=== PATIENT | male | born 1980 | race Caucasian/White ===

== ENCOUNTER 2017-10-29 08:32 | Emergency (ER) | payer BC ==
[2017-10-29] MEDS ORDERED: Ketorolac 30 MG/ML SDV IVPUSH ONE (08:48)
--- NOTE | 2017-10-29 09:24 | EDM.PDOC ---
ED HPI GENERAL MEDICAL PROBLEM - General Chief Complaint: Genitourinary Problem Stated Complaint: LEFT FLANK/KIDNEY PAIN Time Seen by Provider: 10/29/17 09:10 Source of Information: Reports: Patient History Limitations: Reports: No Limitations - History of Present Illness INITIAL COMMENTS - FREE TEXT/NARRATIVE: 37-year-old male with a history of uric acid stones, developed what appeared to be hematuria over the past 24 hours, and this morning at 7:30 had a very sudden onset of left flank pain. Nausea and vomiting, but no dysuria, fevers or chills. Onset: Sudden Location: Reports: Back (Left flank) Quality: Reports: Sharp, Stabbing Severity: Severe Associated Symptoms: Reports: Nausea/Vomiting Left Flank Pain Score (Numeric/FACES): 2 - Related Data Allergies Allergy/AdvReac Type Severity Reaction Status Date / Time Penicillins Allergy Cannot Verified 10/29/17 08:48 Remember Sulfa (Sulfonamide Allergy Cannot Verified 10/29/17 08:48 Antibiotics) Remember Home Meds: Home Meds NK [No Known Home Meds] 10/29/17 [History] Past Medical History HEENT History: Reports: Impaired Vision Cardiovascular History: Reports: High Cholesterol Respiratory History: Reports: Asthma Gastrointestinal History: Reports: GERD Genitourinary History: Reports: Renal Calculus Musculoskeletal History: Reports: Gout Endocrine/Metabolic History: Reports: Obesity/BMI 30+ - Infectious Disease History Infectious Disease History: Reports: Chicken Pox - Past Surgical History HEENT Surgical History: Reports: Adenoidectomy Social & Family History - Tobacco Use Smoking Status *Q: Never Smoker Second Hand Smoke Exposure: No - Caffeine Use Caffeine Use: Reports: Soda - Alcohol Use Days Per Week of Alcohol Use: 2 Number of Drinks Per Day: 2 Total Drinks Per Week: 4 - Recreational Drug Use Recreational Drug Use: No ED ROS GENERAL - Review of Systems Review Of Systems: See Below Constitutional: Denies: Fever, Chills HEENT: Reports: No Symptoms Respiratory: Denies: Shortness of Breath Cardiovascular: Denies: Chest Pain GI/Abdominal: Reports: Nausea, Vomiting. Denies: Abdominal Pain : Reports: Flank Pain, Hematuria Musculoskeletal: Reports: Back Pain Skin: Reports: No Symptoms (Left side) Neurological: Reports: No Symptoms Psychiatric: Reports: No Symptoms ED EXAM, RENAL/ - Physical Exam Exam: See Below Exam Limited By: No Limitations General Appearance: Alert, Anxious, Moderate Distress Head: Atraumatic Respiratory/Chest: No Respiratory Distress Cardiovascular: Regular Rate, Rhythm GI/Abdominal: Soft, Non-Tender Extremities: No: Pedal Edema Neurological: Alert, Oriented Psychiatric: Anxious Skin Exam: Warm, Dry Course - Vital Signs Last Recorded V/S: Last Vital Signs Temp 94.9 F L 10/29/17 09:07 Pulse 61 10/29/17 09:07 Resp 15 10/29/17 09:07 BP 184/109 H 10/29/17 09:07 Pulse Ox 100 10/29/17 09:07 - Orders/Labs/Meds Orders: Active Orders 24 hr Category Date Time Status UA W/MICROSCOPIC [URIN] Urgent Lab 10/29/17 09:26 Ordered Labs: Laboratory Tests 10/29/17 Range/Units 09:26 Urine Color Red Urine Appearance Cloudy Urine pH 5.0 (4.5-8.0) Ur Specific [place] 1.015 (1.008-1.030) Urine Protein 30 H (NEGATIVE) mg/dL Urine Glucose (UA) Normal (NEGATIVE) mg/dL Urine Ketones Negative (NEGATIVE) mg/dL Urine Occult Blood Large (NEGATIVE) Urine Nitrite Negative (NEGAITVE) Urine Bilirubin Negative (NEGATIVE) Urine Urobilinogen Normal (NORMAL) mg/dL Ur Leukocyte Esterase Small (NEGATIVE) Urine RBC Packed H (0-5) Urine WBC 5-10 H (0-5) Ur Epithelial Cells Rare Amorphous Sediment Rare Urine Bacteria Moderate Urine Mucus Rare Meds: Medications Discontinued Medications Generic Name Dose Route Start Last Admin Trade Name Freq PRN Reason Stop Dose Admin Ketorolac Tromethamine 30 mg 10/29/17 08:48 10/29/17 09:00 Toradol IVPUSH 10/29/17 08:49 30 mg ONETIME ONE Administration Tamsulosin HCl 0.4 mg 10/29/17 10:01 10/29/17 10:06 Flomax PO 10/29/17 10:02 0.4 mg ONETIME ONE Administration - Re-Assessments/Exams Free Text/Narrative Re-Assessment/Exam: 10/29/17 09:23 An IV was started and the patient was given 30 mg of IV Toradol. Within 20 minutes she was much improved but still had pain at a 2. Urine had an obvious red tinge, a UA was ordered and after discussion we decided to obtain a CT scan of the abdomen and pelvis which was ordered. 10/29/17 10:23 UA confirmed RBCs, CT scan also confirmed a distal small left ureteral stone with mild hydronephrosis. Stone with very close to passing. He was given 0.4 mg of oral Flomax, and discharged with 10 additional doses of Toradol to take every 6 hours. He can return anytime if worsening despite treatment, or recheck in 2-3 days if not improving. Departure - Departure Time of Disposition: 10:40 Disposition: Home, Self-Care 01 Condition: Good Clinical Impression: Kidney stone - Discharge Information Instructions: Kidney Stones, [id number] Referrals: PCP,None [Primary Care Provider] - Forms: ED Department Discharge Care Plan Goals: Take one dose of ketorolac every 6 hours until pain is completely gone. Return any time if symptoms are worsening despite treatment. - My Orders Last 24 Hours: My Active Orders 10/29/17 09:26 UA W/MICROSCOPIC [URIN] Urgent - Assessment/Plan Last 24 Hours: My Active Orders 10/29/17 09:26 UA W/MICROSCOPIC [URIN] Urgent
[2017-10-29] MEDS ORDERED: Tamsulosin 0.4 MG Cap.ER PO ONE (10:01)
--- NOTE | 2017-10-29 10:19 | CT ---
Abdomen Pelvis wo Cont CLINICAL HISTORY: Flank pain, hematuria COMPARISON: None. TECHNIQUE: Axial tomographic images are obtained from the dome of the diaphragm to the pubic symphysi s without IV contrast enhancement. No oral contrast was used. Auto dosage reduction and iterative rec onstruction techniques employed. FINDINGS: The lung bases are clear. The liver is enlarged. There is diffuse fatty infiltration. The g allbladder has a normal appearance. The spleen is mildly enlarged. The pancreas shows no mass or bili gely dilatation. The adrenal glands are normal bilaterally. There is mild left-sided hydronephrosis an d hydroureter. There is a punctate stone at the left UVJ. There is some thickening in the distal uret er. Abdominal pelvic fat planes and low pelvic side garcia are well demarcated. The appendix is normal contour. IMPRESSION: Mild left-sided hydronephrosis and hydroureter due to a small partially obstructing stone in the distal ureter at the UVJ. There is also some inflammatory change in the distal ureter. Hepatosplenomegaly with diffuse fatty infiltration of the liver
== END 2017-10-29 10:40 | disposition home or self-care (01) ==
LOC: JP.ED 08:32
DX: N13.2 Hydronephrosis with renal and ureteral calculous obstruction (principal); Z88.0 Allergy status to penicillin; Z88.2 Allergy status to sulfonamides
CPT/HCPCS: 74176; 81001; 96374; 99284; A9270; J1885